=== PATIENT | female | born 1990 | race Caucasian/White ===

== ENCOUNTER 2018-08-24 20:14 | Emergency (ER) | payer SELFPAY ==
[~2018-08-24] VITALS: Ht 160 cm; Wt 119.0 kg
[2018-08-24 20:23] VITALS: BP 126/88
[2018-08-24] MEDS ORDERED: IBUPROFEN 200 MG TABLET ONE (20:49)
[2018-08-24] MEDS ORDERED: ACETAMINOPHEN 325 MG TABLET ONE (20:49)
[2018-08-24] MEDS ORDERED: ACETAMINOPHEN 325 MG TABLET PO ONE (21:00)
[2018-08-24] MEDS ORDERED: IBUPROFEN 200 MG TABLET PO ONE (21:00)
[2018-08-24 21:10] LABS: RAPID INFLUENZA A POSITIVE (Negative); RAPID INFLUENZA B Negative (Negative)
--- NOTE | 2018-08-24 21:20 | NUR ---
Nayeli SHEN, at bedside to discuss ED findings and d/c information.
== END 2018-08-24 21:59 | disposition home or self-care (01) ==
LOC: ED 21:34
DX: B34.9 Viral infection, unspecified (principal); J10.1 Influenza due to other identified influenza virus with other respiratory manifestations; E07.9 Disorder of thyroid, unspecified; Z79.899 Other long term (current) drug therapy
CPT/HCPCS: 71046; 87400; 99284